=== PATIENT | female | born 1940 | race Caucasian/White ===

== ENCOUNTER 2018-04-30 11:21 | Emergency (ER) | payer OTHER ==
[2018-04-30 11:27] VITALS: BMI 33.2
[2018-04-30 11:50] LABS: BASO % 0.4 % (0-2.0); EOS % 1.6 % (0-4.5); HEMATOCRIT 37.4 % (32.4-45.2); HEMOGLOBIN 12.3 GM/dL (10.7-15.3); LYMPH % 31.3 % (8-40); MCH 28.7 pg (25.7-33.7); MEAN PLT VOLUME 9.1 fl (7.5-11.1); MONO % 8.9 % (3.8-10.2); NEUT % 57.8 % (42.8-82.8); PLATELET COUNT 284 K/MM3 (134-434); RBC 4.29 M/mm3 (3.60-5.2); RDW 12.4 % (11.6-15.6); WHITE BLOOD COUNT 8.8 K/mm3 (4.0-10.0)
[2018-04-30 12:04] LABS: INR 1.14 (0.83-1.09); PROTHROMBIN TIME (PATIENT) 12.9 SEC (9.7-13.0)
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
[2018-04-30 12:29] LABS: ALBUMIN 4.1 g/dl (3.4-5.0); ANION GAP 6 MMOL/L (8-16); BILIRUBIN,TOTAL 0.3 mg/dL (0.2-1.0); BLOOD UREA NITROGEN 38 mg/dL (7-18); CALCIUM 9.6 mg/dL (8.5-10.1); CHLORIDE 106 mmol/L (98-107); CO2 25 mmol/L (21-32); CREATININE 1.3 mg/dL (0.55-1.02); GLUCOSE,RANDOM 120 mg/dL (74-106); POTASSIUM 4.6 mmol/L (3.5-5.1); SGOT/AST 30 U/L (15-37); SGPT/ALT 30 U/L (13-61); SODIUM 137 mmol/L (136-145); TOT PROT 7.8 g/dl (6.4-8.2)
[2018-04-30 12:31] LABS: ALK PHOS 50 U/L (45-117)
[2018-04-30] MEDS ORDERED: SODIUM CHLORIDE 0.9% 1000 ML INFUS.BAG IV ONE (13:52)
[2018-04-30] MEDS ORDERED: ONDANSETRON 4 MG/2 ML VIAL IVPUSH ONE (13:52)
[2018-04-30] MEDS ORDERED: ONDANSETRON 4 MG/2 ML VIAL ONE (13:53)
[2018-04-30] MEDS ORDERED: ACETAMINOPHEN INJECTION 100 ML IVPB ONE (14:13)
[2018-04-30] MEDS ORDERED: ACETAMINOPHEN 1000 MG/100 ML VIAL (NON FORMULARY) IVPB ONE (14:13)
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
[2018-04-30 14:40] VITALS: BP 137/60; PULSE 70; TEMP 99.1
--- NOTE | 2018-04-30 15:36 | EKG ---
Test Reason : Blood Pressure : / mmHG Vent. Rate : 067 BPM Atrial Rate : 067 BPM P-R Int : 178 ms QRS Dur : 090 ms QT Int : 396 ms P-R-T Axes : 049 052 064 degrees QTc Int : 418 ms NORMAL SINUS RHYTHM NORMAL ECG WHEN COMPARED WITH ECG OF 24-FEB-2014 15:47, NONSPECIFIC T WAVE ABNORMALITY NO LONGER EVIDENT IN INFERIOR LEADS NONSPECIFIC T WAVE ABNORMALITY NO LONGER EVIDENT IN LATERAL LEADS Confirmed by THANIA SOLARES MD ([id number]) on 04/30/2018 3:36:04 PM Referred By: Confirmed By:THANIA SOLARES MD
== END 2018-04-30 15:12 | disposition home or self-care (01) ==
LOC: JER 11:21
PROC: 3E033NZ Introduction of Analgesics, Hypnotics, Sedatives into Peripheral Vein, Percutaneous Approach (ICD-10-PCS; principal; 2018-04-30)
PROC: 3E033GC Introduction of Other Therapeutic Substance into Peripheral Vein, Percutaneous Approach (ICD-10-PCS; 2018-04-30)
DX: M54.2 Cervicalgia (principal); M79.602 Pain in left arm; R42 Dizziness and giddiness; R11.0 Nausea; V49.49XA Driver injured in collision with other motor vehicles in traffic accident, initial encounter; Y92.414 Local residential or business street as the place of occurrence of the external cause; Y93.89 Activity, other specified; Y99.8 Other external cause status
CPT/HCPCS: 36415; 70450-TC; 71045-TC-FY; 72125-TC; 73030-TC-LT-FY; 73060-TC-LT-FY; 74176-TC; 80053; 85025; 85610; 86850; 86900; 86901; 93005; 93010; 99282-25; J0131; J7030

== ENCOUNTER 2020-04-28 05:14 | Day surgery (SDC) | payer OTHER ==
[2020-04-25 14:37] VITALS: BMI 37.2
[2020-04-28 12:12] VITALS: TEMP 98.4
[2020-04-28 13:33] VITALS: BP 131/88; PULSE 53
--- NOTE | 2020-05-01 19:34 | PATH ---
Surgical Pathology Report Patient Name: JEROMY HANSEN [facility]. Rec. #: [id number] /Age/Gender: 1940 (Age: 80) / F Account: [id number] Location: U-ENDOSCOPY Taken: 04/28/2020 Received: 04/28/2020 Reported: 05/01/2020 Physicians: Nicole Mcmahon M.D. Specimen(s) Received A: DUODENAL BULB SECOND PORTION DUODENUM B: GASTRIC ANTRUM C: POLYP DESCENDING COLON D: HOT SNARE POLYPECTOMY RIGHT COLON Clinical History Family history of colon cancer, adenoma surveillance, occult GI bleed Postoperative diagnosis: Gastritis, duodenitis, colon polyps, diverticulosis Final Diagnosis A. DUODENUM, SECOND PORTION AND DUODENAL BULB, BIOPSY: DUODENAL MUCOSA WITH MILD CHRONIC DUODENITIS. B. GASTRIC ANTRUM, BIOPSY: GASTRIC ANTRAL MUCOSA WITH SEVERE CHRONIC ACTIVE GASTRITIS. IMMUNOHISTOCHEMICAL STAIN FOR H. PYLORI IS POSITIVE (MANY). C. DESCENDING COLON, POLYP, BIOPSY: HYPERPLASTIC POLYP. D.COLON, RIGHT, X2, HOT SNARE POLYPECTOMY: HYPERPLASTIC POLYP. INFLAMMATORY POLYP. Positive and negative controls (internal if applicable) show appropriate results. Electronically Signed Bhavna Hayes M.D. Gross Description A. Received in formalin, labeled "biopsy duodenal bulb and second portion of duodenum" are 4 valerio, irregular portions of soft tissue averaging 0.3] cm. in greatest dimension. The specimens are submitted in toto in one cassette. B. Received in formalin, labeled "biopsy gastric antrum" are 4 valerio, irregular portions of soft tissue ranging from 0.2-0.3 cm. in greatest dimension. The specimens are submitted in toto in one cassette. C. Received in formalin, labeled "biopsy polyp descending colon" are 3 valerio, irregular portions of soft tissue ranging from 0.2-0.3 cm. in greatest dimension. The specimens are submitted in toto in one cassette. D. Received in formalin, labeled "hot snare polypectomy x2" are 2 valerio, polypoid portions of soft tissue measuring 0.3 and 0.4 cm. in greatest dimension. The specimens are submitted in toto in one cassette. 04/28/2020 saudi04/28/2020
== END 2020-04-28 13:23 | disposition home or self-care (01) ==
LOC: JASU-ENDO 05:14
PROVIDERS: ATTEND Internal Medicine Gastroenterology
PROC: 0DB98ZX Excision of Duodenum, Via Natural or Artificial Opening Endoscopic, Diagnostic (ICD-10-PCS; 2020-04-28)
PROC: 0DB68ZX Excision of Stomach, Via Natural or Artificial Opening Endoscopic, Diagnostic (ICD-10-PCS; 2020-04-28)
PROC: 0DBK8ZX Excision of Ascending Colon, Via Natural or Artificial Opening Endoscopic, Diagnostic (ICD-10-PCS; principal; 2020-04-28 11:32)
DX: Z12.11 Encounter for screening for malignant neoplasm of colon (principal); Z86.010 Personal history of colon polyps; K57.30 Diverticulosis of large intestine without perforation or abscess without bleeding; D12.2 Benign neoplasm of ascending colon; K29.70 Gastritis, unspecified, without bleeding; K29.80 Duodenitis without bleeding; E11.9 Type 2 diabetes mellitus without complications
CPT/HCPCS: 88305-TC; 88342-TC

== ENCOUNTER 2020-05-27 08:57 | Inpatient (IN) | payer OTHER ==
[2020-05-27 09:08] VITALS: BMI 31.9
--- OUTSIDE RECORDS SUMMARY | 2020-05-27 09:11 | XMS ---
:1940 Author Organization [facility] Support Name Relationship Address Phone RE, RETIRED Unavailable Unavailable [phone] RE Unavailable Unavailable [phone] DANEILLE CHOWDHURY DAUGHTER [address] [place] [address] Re-disclosure Warning The records that you are about to access may contain information from federally- assisted alcohol or drug abuse programs. If such information is present, then the following federally mandated warning applies: This information has been disclosed to you from records protected by federal confidentiality rules (42 CFR part 2). The federal rules prohibit you from making any further disclosure of this information unless further disclosure is expressly permitted by the written consent of the person to whom it pertains or as otherwise permitted by 42 CFR part 2. A general authorization for the release of medical or other information is NOT sufficient for this purpose. The Federal rules restrict any use of the information to criminally investigate or prosecute any alcohol or drug abuse patient.The records that you are about to access may contain highly sensitive health information, the redisclosure of which is protected by Article 27-F of the [facility] Public Health law. If you continue you may haveaccess to information: Regarding HIV / AIDS; Provided by facilities licensed or operated by the [facility] Office of Mental Health; or Provided by the [facility] Office for People With Developmental Disabilities. If such information is present, then the following [facility] mandated warning applies: This information has been disclosed to you from confidential records which are protected by state law. State law prohibits you from making any further disclosure of this information without the specific written consent of the person to whom it pertains, or as otherwise permitted by law. Any unauthorized further disclosure in violation of state law may result in a fine or assisted sentence or both. A general authorization for the release of medical or other information is NOT sufficient authorization for further disclosure. Insurance Providers Payer name Policy type Policy ID Covered Covered libertarian's Policy P bhavani / Coverage libertarian ID relationship to Clem[employer] Inf ormation type clemens [employer] [id number] SP [id number] MEDICARE Results ID Date Data Source [id number] 04/23/2020 09:50:00 AM EDT [facility] Name Value Range Interpretation Description Data Sup porting Code Source(s) Document(s ) SARS [facility] coronavirus 2 RNA This lab was ordered by [facility] and reported by [facility]. Procedure
--- NOTE | 2020-05-27 09:27 | PDOC ---
History of Present Illness - General Chief Complaint: Blood Pressure Problem Stated Complaint: HYPERTENSION Time Seen by Provider: 05/27/20 09:26 - History of Present Illness Initial Comments: 05/27/20 09:26 HPI: This is a 80 y/o F with a PMH of DM, HLD, and HTN presenting to the ED due to progressive difficulty walking, and a high blood pressure this morning. She takes 50mg Atenolol in the a.m., Telmisartan/HCTZ 80-25 in a.m., and hydralazine 100mg b.i.d. For the past few weeks, her blood pressure hasn't been well controlled with her medication. Most recently her doctor increased the hydralazine to 150mg b.i.d however for unknown reasons, the patient is still taking 100mg. Over the past few days she has been feeling increasingly unwell. She describes it as feeling "weak and apathetic." This morning she woke up because of a "noise in her head that she couldn't describe," a throbbing headache, and nausea. She took her blood pressure and found it in the 180's/50's. She then took her 100mg dose of hydralazine. She then started walking and said she felt unsteady and like she might fall. She called her daughter who brought her in. The headache has since resolved. She is still complaining of nausea but no vomiting. She did not have any chest pain, SOB, LOC, fever/chills, dysuria. ROS: GENERAL/CONSTITUTIONAL: No fever/chills, diaphoresis, Yes generalized weakness HEENT: Blurry vision. No ear pain. No sore throat. CARDIOVASCULAR: No chest pain, palpitations or peripheral edema RESPIRATORY: No shortness of breath, dyspnea with exertion, cough, wheezing, or hemoptysis. GASTROINTESTINAL: Yes nausea. No abdominal pain, vomiting, diarrhea or constipation. GENITOURINARY: No dysuria, frequency, or change in urination. MUSCULOSKELETAL: No joint or muscle swelling or pain. SKIN: No rash or hives NEUROLOGIC: Yes headache, No vertigo, focal weakness, loss of consciousness, or change in strength/sensation. ENDOCRINE: No increased thirst. No unexplained weight loss. HEMATOLOGIC/LYMPHATIC: No anemia, easy bleeding, or history of blood clots. PMH: DM, HLD, and HTN PSx: Denied Social Hx: Denied etoh, tobacco, drug use Meds: Hydralazine 100mg b.i.d., atenolol 50mg, Telmisartan/HCTZ 80-25mg Allergies: See nurse note PE: GENERAL: Awake, alert, and fully oriented, non-toxic in appearance. Patient is appropriately conversational. Patient is at baseline, non altered, per daughter who is at bedside. HEENT: Normocephalic, atraumatic. PERRLA, EOMI. No nystagmus. NECK: Normal ROM and supple. No lymphadenopathy, JVD, or masses. CARDIOVASCULAR: Regular rate and rhythm, normal S1 and S2, no murmurs, rubs or gallops PULMONARY: No respiratory distress. Breath sounds equal, clear to auscultation bilaterally. No wheezes, rales or rhonchi. ABDOMEN: Soft, nontender, normoactive bowel sounds. No guarding, no rebound. No masses EXTREMITIES: Normal range of motion, no edema or erythema, no calf tenderness. No clubbing or cyanosis. NEUROLOGICAL: Cranial nerves II through XII grossly intact. Normal speech. Motor strength 5/5 in upper and lower extremities. Sensation intact in bilateral upper and lower extremities. No facial droop. Gait intact but unsteady, no preference to one side. Finger to nose unsteady, slow bilaterally. NIH 2. SKIN: Warm, Dry, normal turgor, no rashes or lesions noted. Normal capillary refill. MDM: 05/27/20 10:11 This is a 80 y/o F with a PMH of DM, HLD, and HTN presenting to the ED due to progressive difficulty walking and a high blood pressure this morning. - She lives alone, but her daughter says she is normally fully independent. - Daughter says she is at baseline mentally - Not feeling well for last few days. - No focal neurological deficits on exam - Finger to nose unsteady bilaterally CVA workup EKG: No ST elevations T wave inversions Sinus Vent rate 69ms No abnormal intervals QTc 432 Spoke with radiologist who noted no acute abnormalities on CT scan Head CT: Impression: No CT evidence of acute intracranial pathology. There has been no definite interval change in comparison to a prior CT exam of 04/30/2018. 05/27/20 11:29 CBC WNL Hyponatremic 129 UA negative 05/27/20 12:01 - Spoke with Dr. Castillo who will follow patient. - Admission to stroke unit and inpatient MRI 05/27/20 12:21 - Microblog sent - Patient admitted 05/28/20 09:57 NIH Stroke Scale - Last Known Well Date/Time & Onset Date Last Known Well: 05/26/20 Time Last Known Well: 20:00 - Initial Evaluation Level of consciousness: Alert Ask patient the month and their age: Answers both correctly Ask patient to open & close eyes; make fist and let go: Obeys both correctly Best gaze (horizontal eye movement): Normal Visual field testing: No visual field loss Facial paresis (Show teeth/raise eyebrows/close eyes tight): Normal symmetrical movement Motor Function: Left Arm: Normal Motor Function: Right Arm: Normal (extends arm 90 (or 45) degrees for 10 seconds without drift Motor Function: Left Leg: Normal (extends leg 30 degrees for 5 seconds without drift) Motor Function: Right Leg: Normal (extends leg 30 degrees for 5 seconds without drift) Limb Ataxia: Present in two limbs (Abnormal finger to nose bilaterally) Sensory(Use pinprick test arms,legs,trunk,face/side to side): Normal Best language (Describe picture, name items, read sentences): No Aphasia Dysarthria (read several words): Normal articulation Extinction and Inattention: No abnormality - Total Score NIH Stroke Scale Score: 2 Past History - Medical History Allergies/Adverse Reactions: Allergies Allergy/AdvReac Type Severity Reaction Status Date / Time No Known Allergies Allergy Verified 05/27/20 09:05 Home Medications: Ambulatory Orders Aspirin 81 mg PO DAILY 02/06/13 Atenolol [Tenormin -] 50 mg PO DAILY 02/06/13 Fenofibrate Nanocrystallized [Tricor] 145 mg PO DAILY 02/06/13 Linagliptin/Metformin HCl [Jentadueto 2.5 mg-500 mg Tab] 1 each PO BID 02/24/14 Cholecalciferol (Vitamin D3) [Vitamin D3] 1,000 unit PO DAILY 04/25/20 Hydralazine HCl 100 mg PO BID 04/25/20 Multivitamin with Iron [Multivitamins with Iron] 1 tab PO DAILY 04/25/20 [place]-3S/Dha/Epa/Fish Oil [Fish Oil 1,200 mg Softgel] 1 each PO DAILY 04/25/20 Telmisartan/Hydrochlorothiazid [Telmisartan-Hctz 80-25 mg Tab] 1 each PO DAILY 04/25/20 Polyethylene Glycol 3350 [Miralax (For Daily Use) -] 17 gm PO DAILY #1 bottle 04/28/20 Anemia: No Asthma: No Cancer: No Cardiac Disorders: No CVA: No COPD: No CHF: No Dementia: No 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,SIGMOID TUBULAR ADENOMA) Disorders: No HTN: Yes Hypercholesterolemia: Yes Liver Disease: No Seizures: No Thyroid Disease: No - Surgical History Appendectomy: No Cardiac Surgery: No Cholecystectomy: No Lung Surgery: No Neurologic Surgery: No Orthopedic Surgery: No - Psycho-Social/Smoking History Smoking Status: No Smoking History: Never smoked Number of Cigarettes Smoked Daily: 0 *Physical Exam - Vital Signs Last Vital Signs Temp Pulse Resp BP Pulse Ox 97.9 F 72 18 180/57 H 97 05/27/20 09:05 05/27/20 09:05 05/27/20 09:05 05/27/20 09:05 05/27/20 09:05 ED Treatment Course - LABORATORY CBC & Chemistry Diagram: 05/28/20 05:51 05/28/20 05:51 Discharge - Discharge Information Problems reviewed: Yes Clinical Impression/Diagnosis: Dysmetria HTN (hypertension) Qualifiers: Hypertension type: unspecified Qualified Code(s): I10 - Essential (primary) hypertension Condition: Stable - Follow up/Referral - Patient Discharge Instructions - Post Discharge Activity
[2020-05-27] MEDS ORDERED: HYDROCHLOROTHIAZIDE 25 MG TABLET (FP) PO ONE (10:02)
[2020-05-27] MEDS ORDERED: ATENOLOL 50 MG TABLET (FP) PO ONE (10:02)
[2020-05-27] MEDS ORDERED: ATENOLOL 25 MG TABLET (FP) ONE ×2 (10:20→16:57)
[2020-05-27] MEDS ORDERED: HYDROCHLOROTHIAZIDE 25 MG TABLET (FP) ONE ×2 (10:21→16:58)
[2020-05-27] MEDS ORDERED: SODIUM CHLORIDE 1,000 ML IV SCH (10:30)
[2020-05-27 10:59] LABS: BASO % 0.5 % (0-2.0); EOS % 0.4 % (0-4.5); HEMATOCRIT 33.1 % (32.4-45.2); HEMOGLOBIN 11.5 GM/dL (10.7-15.3); LYMPH % 28.7 % (8-40); MCH 29.6 pg (25.7-33.7); MCHC 34.7 g/dl (32.0-36.0); MEAN CELL VOLUME 85.3 fl (80-96); MEAN PLT VOLUME 9.2 fl (7.5-11.1); MONO % 9.1 % (3.8-10.2); NEUT % 61.3 % (42.8-82.8); PLATELET COUNT 311 K/MM3 (134-434); RBC 3.88 M/mm3 (3.60-5.2); RDW 12.6 % (11.6-15.6); WHITE BLOOD COUNT 7.2 K/mm3 (4.0-10.0)
--- NOTE | 2020-05-27 10:59 | PDOC ---
Documentation entered by Bridget Blackwell SCRIBE, acting as scribe for Skye Ty MD. Skye Ty MD: This documentation has been prepared by the chris, Bridget Juárez SCRIBE, under my direction and personally reviewed by me in its entirety. I confirm that the documentation accurately reflects all work, treatment, procedures, and medical decision making performed by me. Attending Attestation - Resident Resident Name: ShericeAlice - ED Attending Attestation I have performed the following: I have examined & evaluated the patient, The case was reviewed & discussed with the resident, I agree w/resident's findings & plan, Exceptions are as noted - HPI HPI: 05/27/20 09:37 The patient is a 80 year old female with a significant PMH of HLD, HTN and NIDDM who presents to the emergency department for evaluation of hypertension that occurred this morning. Patient notes that she usually takes Atenol and Telmisartan/HCTZ in the morning and hydralazine b.i.d. She reports that recently her doctor raised her hydralazine from 100mg b.i.d to 150mg b.i.d, due to her blood pressure still being uncontrolled with her medication. The patient reports still taking 100mg of hydralazine. She reports that when she took her BP this morning it was 180s/50s so she took her 100mg of hydralazine and reports no change in BP, so she proceeded to the ED. She also endorses a throbbing headache this morning, that has now subsided, an unsteady gait and some nausea. The patient denies chest pain, shortness of breath. Denies fever, chills, vomiting, diarrhea and constipation. Denies dysuria, frequency, urgency and hematuria. Allergies: NKA Past surgical history: None reported Social history: No reported hx of tobacco use, alcohol use or illicit drug use. PCP: Robbie Shahid - Physicial Exam PE: GENERAL: Awake, alert, and fully oriented, in no acute distress HEAD: No signs of trauma EYES: PERRLA, EOMI, sclera anicteric, conjunctiva clear ENT: Auricles normal inspection, hearing grossly normal, nares patent, oropharynx clear without exudates. Moist mucosa NECK: Normal ROM, supple, no lymphadenopathy, JVD, or masses LUNGS: Breath sounds equal, clear to auscultation bilaterally. No wheezes, and no crackles HEART: Regular rate and rhythm, normal S1 and S2, no murmurs, rubs or gallops ABDOMEN: Soft, nontender, normoactive bowel sounds. No guarding, no rebound. No masses EXTREMITIES: Normal range of motion, no edema. No clubbing or cyanosis. No cords, erythema, or tenderness NEUROLOGICAL: Cranial nerves II through XII grossly intact. Motor and sensation intact. Slight delay with speech when answering questions (confirmed by family member at bedside). +Dysmetria ([id number]) on R SKIN: Warm, dry, normal turgor, no rashes or lesions noted. - Medical Decision Making 05/27/20 10:59 Pt woke up with symptoms, unable to confirm exact time of onset. Will do a stroke workup to further evaluate. Anticipate admission. Patient is not a tPA candidate based on unknown onset of symptoms. NIH Stroke Scale - Last Known Well Date/Time & Onset Date Last Known Well: 05/26/20 - Initial Evaluation Level of consciousness: Alert Ask patient the month and their age: Answers both correctly Ask patient to open & close eyes; make fist and let go: Obeys both correctly Best gaze (horizontal eye movement): Normal Visual field testing: No visual field loss Facial paresis (Show teeth/raise eyebrows/close eyes tight): Normal symmetrical movement Motor Function: Left Arm: Normal Motor Function: Right Arm: Normal (extends arm 90 (or 45) degrees for 10 seconds without drift Motor Function: Left Leg: Normal (extends leg 30 degrees for 5 seconds without drift) Motor Function: Right Leg: Normal (extends leg 30 degrees for 5 seconds without drift) Limb Ataxia: Present in one limb Sensory(Use pinprick test arms,legs,trunk,face/side to side): Normal Best language (Describe picture, name items, read sentences): No Aphasia Dysarthria (read several words): Mild to moderate slurring of words Extinction and Inattention: No abnormality - Total Score NIH Stroke Scale Score: 2 Discharge - Discharge Information Problems reviewed: Yes Clinical Impression/Diagnosis: Dysmetria HTN (hypertension) Qualifiers: Hypertension type: unspecified Qualified Code(s): I10 - Essential (primary) hypertension Condition: Stable - Follow up/Referral - Patient Discharge Instructions - Post Discharge Activity
[2020-05-27 11:00] LABS: EPI CELLS 7 /uL (0-25.1); HYALINE CASTS 0 /uL (0-3.1); PH,URINE 6.5 (5.0-8.0); URINE APPEARANCE CLEAR; URINE BACTERIA 18 /uL (0-1359); URINE BILIRUBIN NEGATIVE (NEGATIVE); URINE COLOR YELLOW; URINE GLUCOSE (UA) TRACE (NEGATIVE); URINE KETONE NEGATIVE (NEGATIVE); URINE LEUK ESTERASE 1+ (NEGATIVE); URINE NITRITE NEGATIVE (NEGATIVE); URINE PROTEIN NEGATIVE (NEGATIVE); URINE RBC 2 /uL (0-23.9); URINE UROBILINOGEN 0.2 mg/dL (0.2-1.0); URINE WBC 14 /uL (0-25.8)
[2020-05-27 11:05] LABS: INR 1.16 (0.83-1.09); PROTHROMBIN TIME (PATIENT) 13.7 SEC (9.7-13.0)
[2020-05-27 11:08] LABS: ACTIVATED PTT 35.3 SECONDS (25.2-36.5)
[2020-05-27] MEDS ORDERED: MECLIZINE HCL 12.5 MG TABLET PO ONE (11:11)
[2020-05-27] MEDS ORDERED: MECLIZINE HCL 12.5 MG TABLET ONE (11:23)
[2020-05-27 11:40] LABS: ALBUMIN 3.9 g/dl (3.4-5.0); ALK PHOS 49 U/L (45-117); ANION GAP 8 MMOL/L (8-16); BILIRUBIN,TOTAL 0.3 mg/dL (0.2-1); BLOOD UREA NITROGEN 36.6 mg/dL (7-18); CALCIUM 9.5 mg/dL (8.5-10.1); CHLORIDE 95 mmol/L (98-107); CHOLESTEROL 161 mg/dL (50-200); CO2 26 mmol/L (21-32); CREATININE 1.3 mg/dL (0.55-1.3); GLUCOSE,RANDOM 122 mg/dL (74-106); HDL CHOLESTEROL 58 mg/dL (40-60); LDL CHOLESTEROL (ONLY SJRH) 94 mg/dL (5-100); POTASSIUM 4.6 mmol/L (3.5-5.1); SGOT/AST 29 U/L (15-37); SGPT/ALT 25 U/L (13-61); SODIUM 129 mmol/L (136-145); TOT PROT 7.6 g/dl (6.4-8.2); TRIGLYCERIDES 134 mg/dL (0-150)
[2020-05-27] MEDS ORDERED: METOCLOPRAMIDE HCL INJECTION 10 MG/2 ML VIAL IVPUSH ONE (12:24)
[2020-05-27] MEDS ORDERED: SODIUM CHLORIDE 0.9% 500 ML INFUS.BAG IV ONE (12:24)
--- OUTSIDE RECORDS SUMMARY | 2020-05-27 13:12 | XMS ---
:1940 Author Organization [facility] Support Name Relationship Address Phone RE, RETIRED Unavailable Unavailable [phone] RE Unavailable Unavailable [phone] DANIELLE CHOWDHURY DAUGHTER [address] [place] [address] Re-disclosure Warning The records that you are [...] is protected by Article 27-F of the [facility] Public Health law. If you continue you may haveaccess to information: Regarding HIV / AIDS; Provided by facilities licensed or operated by the [facility] Office of Mental Health; or Provided by the [facility] Office for People With Developmental Disabilities. If such information is present, then the following [facility] mandated warning applies: This information has been [...] law may result in a fine or shelter sentence or both. A general authorization for the release of medical or other information is NOT sufficient authorization for further disclosure. Insurance Providers Payer name Policy type Policy ID Covered Covered green party's Policy P bhavani / Coverage green party ID relationship to [employer] ormation type clemens [employer] [id number] SP [id number] MEDICARE Results ID Date Data Source [id number] 04/23/2020 09:50:00 AM EDT [facility] Name Value Range Interpretation Description Data Sup porting Code Source(s) Document(s ) SARS [facility] coronavirus 2 RNA This lab was ordered by [facility] and reported by [facility]. Procedure
[2020-05-27] MEDS ORDERED: METOCLOPRAMIDE HCL INJECTION 10 MG/2 ML VIAL ONE (13:51)
[2020-05-27] MEDS ORDERED: ONDANSETRON 4 MG/2 ML VIAL IVPB PRN (14:43)
--- NOTE | 2020-05-27 14:48 | HP ---
CHIEF COMPLAINT: PCP: HISTORY OF PRESENT ILLNESS: 80 y/o F w/ PMH of DM, HLD, and HTN who came into the ED c/o high blood pressure, odd sensation in the head and progressive difficulty ambulating. Pt endorses difficulty with controlling her BP over the last few weeks. Most recently, her hydralazine has been increased from 50 to 100mg BID. Her readings at home have been "up and down" per the patient. she cannot remember the numbers. she also endorses progressive difficulty walking over the past few weeks. This morning, she woke up and felt an "buzzing noise in her head" accompanied by a generalized weakness and a feeling that "something was off". Her BP was in the 180's / 50's at that time. She also felt particularly unsteady at that time. Patient denies fever, chills, abdominal pain In the ED, patient was hypertensive to [address]'s systolic. NIHSS 0. CT head negative for bleed or infarct. Neuology consuled form ED, will evaluate. MRI brain negative for infarct. Recent Travel: none PAST MEDICAL HISTORY: see hpi PAST SURGICAL HISTORY: see hpi Social History: Smoking: denies Alcohol: denies Drugs: denies Allergies No Known Allergies Allergy (Verified 05/27/20 09:05) HOME MEDICATIONS: Home Medications Medication Instructions Recorded Aspirin 81 mg PO DAILY 02/06/13 Atenolol [Tenormin -] 50 mg PO DAILY 02/06/13 Fenofibrate Nanocrystallized 145 mg PO DAILY 02/06/13 [Tricor] Linagliptin/Metformin HCl 1 each PO BID 02/24/14 [Jentadueto 2.5 mg-500 mg Tab] Cholecalciferol (Vitamin D3) 1,000 unit PO DAILY 04/25/20 [Vitamin D3] Hydralazine HCl 100 mg PO BID 04/25/20 Metformin HCl [Glucophage] 500 mg PO DAILY 04/25/20 Multivitamin with Iron 1 tab PO DAILY 04/25/20 [Multivitamins with Iron] [place]-3S/Dha/Epa/Fish Oil [Fish 1 each PO DAILY 04/25/20 Oil 1,200 mg Softgel] Telmisartan/Hydrochlorothiazid 1 each PO DAILY 04/25/20 [Telmisartan-Hctz 80-25 mg Tab] Polyethylene Glycol 3350 [Miralax 17 gm PO DAILY #1 bottle 04/28/20 (For Daily Use) -] REVIEW OF SYSTEMS negative except for as noted in HPI PHYSICAL EXAMINATION Vital Signs - 24 hr 05/27/20 05/27/20 05/27/20 09:05 09:30 10:00 Temperature 97.9 F Pulse Rate 72 Pulse Rate [ 70 67 Apical] Respiratory 18 18 18 Rate Blood Pressure 180/57 H Blood Pressure 169/57 L 152/50 L [Left Arm] O2 Sat by Pulse 97 99 99 Oximetry (%) 05/27/20 05/27/20 05/27/20 10:30 11:30 12:00 Temperature Pulse Rate Pulse Rate [ 67 62 65 Apical] Respiratory 18 18 18 Rate Blood Pressure Blood Pressure 160/58 L 138/46 L 148/48 L [Left Arm] O2 Sat by Pulse 99 96 96 Oximetry (%) 05/27/20 05/27/20 05/27/20 12:30 13:00 13:30 Temperature Pulse Rate Pulse Rate [ 65 63 70 Apical] Respiratory 18 18 18 Rate Blood Pressure Blood Pressure 143/47 L 145/47 L 167/59 L [Left Arm] O2 Sat by Pulse 95 98 98 Oximetry (%) 05/27/20 14:30 Temperature Pulse Rate Pulse Rate [ 69 Apical] Respiratory 18 Rate Blood Pressure Blood Pressure 148/50 L [Left Arm] O2 Sat by Pulse 97 Oximetry (%) GENERAL: Awake, alert, and fully oriented, in no acute distress. HEAD: Normal with no signs of trauma. EYES: Pupils equal, round and reactive to light, extraocular movements intact, sclera anicteric, conjunctiva clear. No lid lag. EARS, NOSE, THROAT: Ears normal, nares patent, oropharynx clear without exudates. Moist mucous membranes. NECK: Normal range of motion, supple without lymphadenopathy, JVD, or masses. LUNGS: Breath sounds equal, clear to auscultation bilaterally. No wheezes, and no crackles. No accessory muscle use. HEART: Regular rate and rhythm, normal S1 and S2 without murmur, rub or gallop. ABDOMEN: Soft, nontender, not distended, normoactive bowel sounds, no guarding, no rebound, no masses. No hepatomegaly or splenomegaly. MUSCULOSKELETAL: Normal range of motion at all joints. No bony deformities or tenderness. No CVA tenderness. UPPER EXTREMITIES: 2+ pulses, warm, well-perfused. No cyanosis. No clubbing. No peripheral edema. LOWER EXTREMITIES: 2+ pulses, warm, well-perfused. No calf tenderness. No peripheral edema. NEUROLOGICAL: Cranial nerves II-XII intact. Normal speech. Normal gait. PSYCHIATRIC: Cooperative. Good eye contact. Appropriate mood and affect. SKIN: Warm, dry, normal turgor, no rashes or lesions noted, normal capillary refill. Laboratory Results - last 24 hr 05/27/20 05/27/20 05/27/20 10:34 10:40 10:40 WBC RBC Hgb Hct MCV MCH MCHC RDW Plt Count MPV Absolute Neuts (auto) Neutrophils % Lymphocytes % Monocytes % Eosinophils % Basophils % Nucleated RBC % PT with INR 13.70 H INR 1.16 H PTT (Actin FS) 35.3 Sodium Potassium Chloride Carbon Dioxide Anion Gap BUN Creatinine Est GFR (CKD-EPI)AfAm Est GFR (CKD-EPI)NonAf Random Glucose Lactic Acid Calcium Total Bilirubin AST ALT Alkaline Phosphatase Creatine Kinase Creatine Kinase Index CK-MB (CK-2) Troponin I Total Protein Albumin Triglycerides Cancelled Cholesterol Cancelled Total LDL Cholesterol Cancelled HDL Cholesterol Cancelled Urine Color Yellow Urine Appearance Clear Urine pH 6.5 D Ur Specific [place] 1.009 L Urine Protein Negative Urine Glucose (UA) Trace Urine Ketones Negative Urine Blood Negative Urine Nitrite Negative Urine Bilirubin Negative Urine Urobilinogen 0.2 Ur Leukocyte Esterase 1+ H Urine WBC (Auto) 14 Urine RBC (Auto) 2 Urine Casts (Auto) 0 U Epithel Cells (Auto) 7 Urine Bacteria (Auto) 18 Blood Type Antibody Screen 05/27/20 05/27/20 05/27/20 10:40 10:40 10:40 WBC 7.2 RBC 3.88 Hgb 11.5 Hct 33.1 MCV 85.3 MCH 29.6 MCHC 34.7 RDW 12.6 Plt Count 311 MPV 9.2 Absolute Neuts (auto) 4.4 Neutrophils % 61.3 Lymphocytes % 28.7 Monocytes % 9.1 Eosinophils % 0.4 Basophils % 0.5 Nucleated RBC % 0 PT with INR INR PTT (Actin FS) Sodium 129 L Potassium 4.6 Chloride 95 L Carbon Dioxide 26 Anion Gap 8 BUN 36.6 H Creatinine 1.3 Est GFR (CKD-EPI)AfAm 45.50 Est GFR (CKD-EPI)NonAf 39.26 Random Glucose 122 H Lactic Acid Calcium 9.5 Total Bilirubin 0.3 AST 29 ALT 25 Alkaline Phosphatase 49 Creatine Kinase 150 Creatine Kinase Index 1.2 CK-MB (CK-2) 1.8 Troponin I < 0.02 Total Protein 7.6 Albumin 3.9 Triglycerides 134 Cholesterol 161 Total LDL Cholesterol 94 HDL Cholesterol 58 Urine Color Urine Appearance Urine pH Ur Specific [place] Urine Protein Urine Glucose (UA) Urine Ketones Urine Blood Urine Nitrite Urine Bilirubin Urine Urobilinogen Ur Leukocyte Esterase Urine WBC (Auto) Urine RBC (Auto) Urine Casts (Auto) U Epithel Cells (Auto) Urine Bacteria (Auto) Blood Type A POSITIVE Antibody Screen Negative 05/27/20 10:40 WBC RBC Hgb Hct MCV MCH MCHC RDW Plt Count MPV Absolute Neuts (auto) Neutrophils % Lymphocytes % Monocytes % Eosinophils % Basophils % Nucleated RBC % PT with INR INR PTT (Actin FS) Sodium Potassium Chloride Carbon Dioxide Anion Gap BUN Creatinine Est GFR (CKD-EPI)AfAm Est GFR (CKD-EPI)NonAf Random Glucose Lactic Acid 1.6 Calcium Total Bilirubin AST ALT Alkaline Phosphatase Creatine Kinase Creatine Kinase Index CK-MB (CK-2) Troponin I Total Protein Albumin Triglycerides Cholesterol Total LDL Cholesterol HDL Cholesterol Urine Color Urine Appearance Urine pH Ur Specific [place] Urine Protein Urine Glucose (UA) Urine Ketones Urine Blood Urine Nitrite Urine Bilirubin Urine Urobilinogen Ur Leukocyte Esterase Urine WBC (Auto) Urine RBC (Auto) Urine Casts (Auto) U Epithel Cells (Auto) Urine Bacteria (Auto) Blood Type Antibody Screen ASSESSMENT/PLAN: 80 y/o F w/ PMH of DM, HLD, and HTN who came into the ED c/o high blood pressure, odd sensation in the head and progressive difficulty ambulating. #unsteadiness and difficulty ambulating -likley neurodegenerative in nature as per neruology. -MRI brain ruled out Infarct -pt will need neuro follow up upon discharge #HTN -will restart home BP meds and monitor BP -titrate BP meds accordingly -it is possible BP spike could be responsible for the patient's ssx in part. Family Medical History Family History: Denies Visit type - Medication Review Med list reviewed for High Risk Meds patients 65 and older: Yes - Emergency Visit Emergency Visit: Yes ED Registration Date: 05/27/20 Care time: The patient presented to the Emergency Department on the above date and was hospitalized for further evaluation of their emergent condition. - New Patient This patient is new to me today: Yes Date on this admission: 05/28/20 - Critical Care Critical Care patient: No
[2020-05-27] MEDS ORDERED: PATIENT'S OWN MEDICATION (NON-FORMULARY) (Telmisartan/Hydrochlorothiazid [Telmisartan-Hctz PO SCH (15:00)
[2020-05-27] MEDS ORDERED: LOSARTAN POTASSIUM 50 MG TABLET PO SCH (15:15)
--- NOTE | 2020-05-27 15:53 | EKG ---
Test Reason : Blood Pressure : / mmHG Vent. Rate : 069 BPM Atrial Rate : 069 BPM P-R Int : 194 ms QRS Dur : 092 ms QT Int : 404 ms P-R-T Axes : 089 017 055 degrees QTc Int : 432 ms NORMAL SINUS RHYTHM OTHERWISE NORMAL ECG WHEN COMPARED WITH ECG OF 30-APR-2018 13:49, NO SIGNIFICANT CHANGE WAS FOUND Confirmed by JAMES ASHBY MD ([id number]) on 05/27/2020 3:53:19 PM Referred By: Confirmed By:JAMES ASHBY MD
[2020-05-27] MEDS ORDERED: ASPIRIN COATED 81 MG TABLET.EC ONE (16:57)
[2020-05-27] MEDS ORDERED: HEPARIN NA (PORCINE) 5,000 UNITS/ML 1ML VIAL ONE (16:58)
[2020-05-27] MEDS: HYDROCHLOROTHIAZIDE 25 MG TABLET (FP) PO SCH (17:30)
[2020-05-27] MEDS: ATENOLOL 50 MG TABLET (FP) PO SCH (17:30)
[2020-05-27] MEDS: VALSARTAN 160 MG TABLET PO SCH (18:19)
[2020-05-27] MEDS: HEPARIN NA (PORCINE) 5,000 UNITS/ML 1ML VIAL SQ SCH ×2 (18:19→22:35)
--- NOTE | 2020-05-27 18:34 | CONSULT ---
Consult - text type - Consultation Consultation Note: NEUROLOGY CONSULTATION is greatly appreciated: Events reviewed,. Patient examined with her daughter at the bedside. This 80 yo RH woman lives alone. Followed by Mark Shahid and Salome. PMH of HTN, Cholesterol and diabetes. Recently s/p colonoscopy revealing benign polyps. Maintained on: Aspirin 81; Atenolol 50; Tricor; Jentadueto 2.5 mg-500; Hydralazine 100 BID; Metformin; and Telmisartan/Hctz 80-25 mg. Pt walks around her block every day but, over the last few months finds she is slower. easily fatigued and more wobbly. In recent weeks family relates increasing difficulty regulating BP's with SBP's > 180. Last night she describes sudden deterioration of gait. When she notified her daughter this AM they came to the ED. CT of head (reviewed): Normal study MRI of brain (reviewed but not yet reported. Mild atrophy and microvascular changes. MADDISON BP's in 140-150/60-70 range. No bruits. Cor reg. NEURO: Awake, alert, anxious. MS/Speech: Normal CN II-XII: normal without Nystagmus Motor: No drift or tremor. Normal strength, throughout. + Cogwheel rigidity. Decreased NANCY's symmetrically. Normal reflexes except absent AJ's. Toes downgoing Coord: No FTN dystaxia Sensory: Reduced vibration in the feet. Gait: Shuffling, without circumduction or asymmetry. IMP: Non-focal exam sig for early extrapyramidal signs (Parkinsonism) and Diabetic peripheral neuropathy. SUGGEST: Stabilize BP Await MRI reading Check B12, TSH, CK, Covid status PT for gait training. Should continue as out patient Neuro f/u as out patient for assessment of neuropathy and possible Rx of EPS. Thank you very much, Jeancarlos Castillo MD
[2020-05-27] MEDS: ASPIRIN 81 MG CHEWABLE TABLETS PO SCH (18:47)
[2020-05-27] MEDS: INSULIN SLIDING SCALE (NOVOLOG) 1 VIAL SQ SCH ×2 (18:48→22:37)
[2020-05-27] MEDS: hydrALAZINE HCL 50 MG TABLET (FP) PO SCH ×2 (22:35→23:01)
[2020-05-27] MEDS ORDERED: PT OWN MED DRAWER 7, Y5N ONE (23:07)
[2020-05-28] MEDS: INSULIN SLIDING SCALE (NOVOLOG) 1 VIAL SQ SCH ×4 (06:12→21:30)
[2020-05-28] MEDS: HEPARIN NA (PORCINE) 5,000 UNITS/ML 1ML VIAL SQ SCH ×3 (06:12→21:32)
[2020-05-28 06:20] LABS: BASO % 0.3 % (0-2.0); EOS % 1.2 % (0-4.5); HEMATOCRIT 31.5 % (32.4-45.2); HEMOGLOBIN 10.7 GM/dL (10.7-15.3); LYMPH % 32.5 % (8-40); MCH 28.4 pg (25.7-33.7); MCHC 33.9 g/dl (32.0-36.0); MEAN CELL VOLUME 83.9 fl (80-96); MEAN PLT VOLUME 9.2 fl (7.5-11.1); PLATELET COUNT 288 K/MM3 (134-434); RBC 3.75 M/mm3 (3.60-5.2); RDW 12.6 % (11.6-15.6); WHITE BLOOD COUNT 6.9 K/mm3 (4.0-10.0)
[2020-05-28 06:53] LABS: ALBUMIN 3.4 g/dl (3.4-5.0); BILIRUBIN,TOTAL 0.3 mg/dL (0.2-1); BLOOD UREA NITROGEN 27.3 mg/dL (7-18); CALCIUM 8.9 mg/dL (8.5-10.1); CREATININE 1.2 mg/dL (0.55-1.3); MAGNESIUM 2.2 mg/dL (1.8-2.4); PHOSPHOROUS 3.4 mg/dL (2.5-4.9); TOT PROT 6.6 g/dl (6.4-8.2)
[2020-05-28] MEDS ORDERED: PT OWN MED DRAWER 7, Y5N ONE ×3 (08:56→17:25)
[2020-05-28] MEDS: ASPIRIN 81 MG CHEWABLE TABLETS PO SCH (09:12)
[2020-05-28] MEDS: HYDROCHLOROTHIAZIDE 25 MG TABLET (FP) PO SCH (09:12)
[2020-05-28] MEDS: hydrALAZINE HCL 50 MG TABLET (FP) PO SCH ×2 (09:12→21:27)
[2020-05-28] MEDS: VALSARTAN 160 MG TABLET PO SCH (09:12)
[2020-05-28] MEDS: ATENOLOL 50 MG TABLET (FP) PO SCH (09:13)
[2020-05-28] MEDS: POLYETHYLENE GLYCOL 3350 119 GM BTL PO SCH (09:18)
[2020-05-28] MEDS: FENOFIBRIC ACID 135 MG CAP PO SCH (11:49)
[2020-05-29] MEDS: INSULIN SLIDING SCALE (NOVOLOG) 1 VIAL SQ SCH ×4 (06:25→21:30)
[2020-05-29] MEDS: HEPARIN NA (PORCINE) 5,000 UNITS/ML 1ML VIAL SQ SCH ×3 (06:25→21:26)
[2020-05-29] MEDS ORDERED: PT OWN MED DRAWER 7, Y5N ONE (08:55)
[2020-05-29] MEDS: ASPIRIN 81 MG CHEWABLE TABLETS PO SCH (09:02)
[2020-05-29] MEDS: POLYETHYLENE GLYCOL 3350 119 GM BTL PO SCH (09:03)
[2020-05-29] MEDS: VALSARTAN 160 MG TABLET PO SCH (09:03)
[2020-05-29] MEDS: HYDROCHLOROTHIAZIDE 25 MG TABLET (FP) PO SCH (09:03)
[2020-05-29] MEDS: ATENOLOL 50 MG TABLET (FP) PO SCH (09:03)
[2020-05-29] MEDS: hydrALAZINE HCL 50 MG TABLET (FP) PO SCH ×2 (09:03→21:27)
[2020-05-29] MEDS: FENOFIBRIC ACID 135 MG CAP PO SCH (09:04)
--- NOTE | 2020-05-29 14:12 | PN ---
Teaching Attending Note Name of Resident: Robbie Reilly ATTENDING PHYSICIAN STATEMENT I saw and evaluated the patient. I reviewed the resident's note and discussed the case with the resident. I agree with the resident's findings and plan as documented. SUBJECTIVE: Seen and examined at bedside. Patient reports symptoms has resolved and she is walking her baseline. Had plan to discharge the patient, however carotid Doppler results came back showing 50 to 70% proximal left internal carotid artery stenosis. CTA head and neck ordered. If no need for urgent intervention on the basis of results of CTA patient may be discharged with outpatient follow- up. OBJECTIVE Last Vital Signs Temp Pulse Resp BP Pulse Ox 98.2 F 74 19 141/65 98 05/29/20 09:10 05/29/20 09:10 05/29/20 09:10 05/29/20 09:10 05/29/20 09:11 PE: Per resident note Labs/Imaging: reviewed ASSESSMENT/PLAN 80-year-old female with a past medical history of DM, HLD, HTN presented to the ED complaining of high blood pressure and on sensation in the head and progressive difficulty ambulating. Blood pressure treated with resolution of symptoms and unremarkable MRI. #Unsteadiness and difficulty ambulating Neurology on board: Appreciate recommendations Ultrasound suggestive of carotid artery stenosis, will follow-up with CTA head and neck ASA, statin #Diabetes mellitus Hold home oral medications ISS #Hypertension Continue medications
--- NOTE | 2020-05-29 17:29 | PN ---
Physical Exam: SUBJECTIVE: Patient seen and examined at bedside this AM. Denies any weakness or difficulty ambulating. OBJECTIVE: Vital Signs Period Temp Pulse Resp BP Sys/Dixon Pulse Ox Last 24 Hr 97.8 F-98.5 F 62-79 17-20 120-147/44-65 95-98 GENERAL: The patient is awake, alert, and fully oriented, in no acute distress. HEAD: Normal with no signs of trauma. EYES: EOMI Sclera clear NECK: Trachea midline, full range of motion, supple. LUNGS: CTAB2 ABDOMEN: Soft, NDNT EXTREMITIES: No CCE NEUROLOGICAL: Cranial nerves II through XII grossly intact. Normal speech, gait observed. Walks straight with no abnormalities PSYCH: Normal mood, normal affect. SKIN: Warm, dry, normal turgor, no rashes or lesions noted Laboratory Results - last 24 hr 05/29/20 17:02 POC Glucometer 128 Active Medications Generic Name Dose Route Start Last Admin Trade Name Freq PRN Reason Stop Dose Admin Aspirin 81 mg 05/27/20 14:45 05/29/20 09:02 Asa - PO 81 mg DAILY ERENDIRA Administration Atenolol 50 mg 05/27/20 14:45 05/29/20 09:03 Tenormin - PO 50 mg DAILY ERENDIRA Administration Fenofibric Acid 135 mg 05/28/20 10:00 05/29/20 09:04 Trilipix - PO 135 mg DAILY ERENDIRA Administration Heparin Sodium (Porcine) 5,000 unit 05/27/20 15:30 05/29/20 13:19 Heparin - SQ 5,000 unit TID ERENDIRA Administration Hydralazine HCl 100 mg 05/27/20 22:00 05/29/20 09:03 Apresoline - PO 100 mg BID ERENDIRA Administration Hydrochlorothiazide 25 mg 05/27/20 15:15 05/29/20 09:03 Hctz - PO 25 mg DAILY ERENDIRA Administration Insulin Aspart 1 vial 05/27/20 16:30 05/29/20 17:05 Novolog Vial Sliding Scale - SQ Not Given ACHS ON LICENSE OF [facility] Protocol Ondansetron HCl 4 mg 05/27/20 14:43 Zofran Injection IVPB Q8H PRN NAUSEA Polyethylene Glycol 17 gm 05/28/20 10:00 05/29/20 09:03 Miralax (For Daily Use) - PO 17 gm DAILY ERENDIRA Administration Valsartan 320 mg 05/27/20 15:15 05/29/20 09:03 Diovan - PO 320 mg DAILY ERENDIRA Administration ASSESSMENT/PLAN: 80 y/o F w/ PMH of DM, HLD, and HTN who came into the ED c/o high blood pressure, odd sensation in the head and progressive difficulty ambulating. #unsteadiness and difficulty ambulating likely 2/2 uncontrolled Hypertension -BP upon admission 180s systolic -Imaging negative for any acute intracranial patholoy - Carotid U/S---> 50-70% stenosis left ICA. Neck/Brain CTA pending read. Already on statin, will likely increase dosage if no indication for CEA on read. Patient also on ASA. -Neuro on board. Recs appreciated. #HTN -Telmisartan-HCTZ switched to Valsartan 360 and HCTZ as Telmisartan-HCTZ non- formulary. Also Valsartan 360 is stronger than Telmisartan 80 per pharmacy. #FEN No Fluids monitor Electrolytes Sodium Controlled #DVT ppx: HepSQTID #Dispo: Likely D/C pending read of Neck/Brain CTA Visit type - Emergency Visit Emergency Visit: Yes ED Registration Date: 05/27/20 Care time: The patient presented to the Emergency Department on the above date and was hospitalized for further evaluation of their emergent condition. - New Patient This patient is new to me today: No - Critical Care Critical Care patient: No - Discharge Referral Referred to [facility] No - Medication Review Med list reviewed for High Risk Meds patients 65 and older: Yes ATTENDING PHYSICIAN STATEMENT I saw and evaluated the patient. I reviewed the resident's note and discussed the case with the resident. I agree with the resident's findings and plan as documented. SUBJECTIVE: OBJECTIVE: ASSESSMENT AND PLAN:
--- NOTE | 2020-05-29 21:15 | PN ---
Progress Note (short form) - Note Progress Note: NEUROLOGY PROGRESS: Events reviewed. Patient examined. Pt. notes walking is steadier today and she is upset because she did not go home. MRI of brain (reviewed): Normal Carotid duplex doppler: Moderate (50-70) left ICA stenosis CT Angio of neck and brain done: awaiting reading. MADDISON: No bruits No drift. Mild cogwheeling with reinforcement Slightly reduced Lilly Absent AJ's. Reduced vibration in feet. Romberg - Slight shuffling IMP: Non-focal exam Mild extrapyramidal signs Diabetic Peripheral neuropathy Mild-Mod left ICA plaque/stenosis SUGGEST: OK to D/C Will check CTA as out patient Neuro f/u as out patient Thank you very much, Jeancarlos Castillo MD
[2020-05-30] MEDS: HEPARIN NA (PORCINE) 5,000 UNITS/ML 1ML VIAL SQ SCH ×2 (06:34→13:23)
[2020-05-30] MEDS: INSULIN SLIDING SCALE (NOVOLOG) 1 VIAL SQ SCH ×2 (06:34→10:55)
[2020-05-30 07:09] LABS: HEMATOCRIT 30.5 % (32.4-45.2); HEMOGLOBIN 10.3 GM/dL (10.7-15.3); MCH 28.7 pg (25.7-33.7); MCHC 33.7 g/dl (32.0-36.0); MEAN PLT VOLUME 9.8 fl (7.5-11.1); PLATELET COUNT 274 K/MM3 (134-434); RBC 3.59 M/mm3 (3.60-5.2); RDW 12.4 % (11.6-15.6); WHITE BLOOD COUNT 8.7 K/mm3 (4.0-10.0)
[2020-05-30 07:28] LABS: CALCIUM 8.7 mg/dL (8.5-10.1); CREATININE 1.5 mg/dL (0.55-1.3); MAGNESIUM 2.2 mg/dL (1.8-2.4); POTASSIUM 4.6 mmol/L (3.5-5.1)
[2020-05-30] MEDS ORDERED: SODIUM CHLORIDE 500 ML IV STA ×2 (07:36→10:40)
[2020-05-30] MEDS ORDERED: PT OWN MED DRAWER 7, Y5N ONE ×2 (08:23→08:54)
[2020-05-30] MEDS: POLYETHYLENE GLYCOL 3350 119 GM BTL PO SCH (09:03)
[2020-05-30] MEDS: HYDROCHLOROTHIAZIDE 25 MG TABLET (FP) PO SCH (09:03)
[2020-05-30] MEDS: ATENOLOL 50 MG TABLET (FP) PO SCH (09:04)
[2020-05-30] MEDS: VALSARTAN 160 MG TABLET PO SCH (09:04)
[2020-05-30] MEDS: FENOFIBRIC ACID 135 MG CAP PO SCH (09:04)
[2020-05-30] MEDS: hydrALAZINE HCL 50 MG TABLET (FP) PO SCH (09:04)
[2020-05-30] MEDS: ASPIRIN 81 MG CHEWABLE TABLETS PO SCH (09:04)
--- NOTE | 2020-05-30 12:38 | PN ---
Teaching Attending Note Name of Resident: Robbie Reilly ATTENDING PHYSICIAN STATEMENT I saw and evaluated the patient. I reviewed the resident's note and discussed the case with the resident. I agree with the resident's findings and plan as documented. SUBJECTIVE: Seen and examined at bedside. Feeling well. CTA head and neck showed bilateral 50% carotid stenosis without occlusion. Creatinine noted to be 1.5 this morning up from 1.2 yesterday. Patient given fluids, will recheck creatinine and if not continuing to trend up will discharge this afternoon OBJECTIVE Last Vital Signs Temp Pulse Resp BP Pulse Ox 99 F 73 18 138/69 95 05/30/20 09:53 05/30/20 09:53 05/30/20 09:53 05/30/20 09:53 05/30/20 09:53 PE: Per resident note Labs/Imaging: reviewed ASSESSMENT/PLAN 80-year-old female with a past medical history of DM, HLD, HTN presented to the ED complaining of high blood pressure and on sensation in the head and progressive difficulty ambulating. Blood pressure treated with resolution of symptoms and unremarkable MRI. 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
[2020-05-30 13:43] VITALS: BP 133/67; PULSE 74; TEMP 98.6
[2020-05-30 14:29] LABS: BLOOD UREA NITROGEN 33.6 mg/dL (7-18); CALCIUM 8.7 mg/dL (8.5-10.1); CREATININE 1.5 mg/dL (0.55-1.3); POTASSIUM 4.9 mmol/L (3.5-5.1)
[2020-05-30] MEDS ORDERED: SODIUM CHLORIDE 1,000 ML IV SCH (15:30)
--- NOTE | 2020-05-30 15:36 | DS ---
Physical Exam: SUBJECTIVE: Patient seen and examined OBJECTIVE: Vital Signs Period Temp Pulse Resp BP Sys/Dixon Pulse Ox Last 24 Hr 98.2 F-99.4 F 71-82 16-20 110-140/44-90 95-98 PHYSICAL EXAM GENERAL: The patient is awake, alert, and fully oriented, in no acute distress. HEAD: Normal with no signs of trauma. EYES: PERRL, extraocular movements intact, sclera anicteric, conjunctiva clear. ENT: Ears normal, nares patent, oropharynx clear without exudates, moist mucous membranes. NECK: Trachea midline, full range of motion, supple. LUNGS: Breath sounds equal, clear to auscultation bilaterally, no wheezes, no crackles, no accessory muscle use. HEART: Regular rate and rhythm, S1, S2 without murmur, rub or gallop. ABDOMEN: Soft, nontender, nondistended, normoactive bowel sounds, no guarding, no rebound, no hepatosplenomegaly, no masses. EXTREMITIES: 2+ pulses, warm, well-perfused, no edema. NEUROLOGICAL: Cranial nerves II through XII grossly intact. Normal speech, gait not observed. PSYCH: Normal mood, normal affect. SKIN: Warm, dry, normal turgor, no rashes or lesions noted. LABS Laboratory Results - last 24 hr 05/29/20 05/30/20 05/30/20 17:02 05:50 05:50 WBC 8.7 RBC 3.59 L Hgb 10.3 L Hct 30.5 L MCV 85.0 MCH 28.7 MCHC 33.7 RDW 12.4 Plt Count 274 MPV 9.8 Sodium 135 L Potassium 4.6 Chloride 104 Carbon Dioxide 25 Anion Gap 6 L BUN 34.0 H Creatinine 1.5 H Est GFR (CKD-EPI)AfAm 38.28 Est GFR (CKD-EPI)NonAf 33.02 POC Glucometer 128 Random Glucose 122 H Calcium 8.7 Phosphorus 4.0 Magnesium 2.2 05/30/20 05/30/20 05/30/20 06:33 10:52 13:21 WBC RBC Hgb Hct MCV MCH MCHC RDW Plt Count MPV Sodium 134 L Potassium 4.9 Chloride 102 Carbon Dioxide 25 Anion Gap 7 L BUN 33.6 H Creatinine 1.5 H Est GFR (CKD-EPI)AfAm 38.28 Est GFR (CKD-EPI)NonAf 33.02 POC Glucometer 128 187 Random Glucose 203 H Calcium 8.7 Phosphorus Magnesium HOSPITAL COURSE: Date of Admission:05/27/20 Date of Discharge: 05/30/20 Discharge Summary Problems reviewed: Yes Reason For Visit: DYSMETRIA/HYPERTENSION Current Active Problems Dysmetria (Acute) HTN (hypertension) (Acute) Condition: Stable - Instructions Diet, Activity, Other Instructions: You were seen here because of your problem walking. This was all because of high blood pressure that you were experiencing at the time. As your blood pressure became normal your symptoms improved. It is important to take your blood pressure medications every day on time. MEDICATIONS: Please take your home medications as below: Atenolol 50mg daily Hydralazine 100mg TWICE daily We have made changes to your blood pressure medication regimen. Please take Valsartan 360 daily, Hydrochlorothiazide 25 daily, Aspirin 81 mg Daily, and Atorvastatin 80 mg (at night) Please resume the Valsartan on , June 01. You kidneys became elevated likely secondary to you receiving the contrast for the Cat Scan. Please follow up this week with Dr Shahid to have your blood redrawn (CMP, CBC) Please STOP taking your Metformin and Jentadueto until you see your primary care doctor within 1 week and have your blood work repeated. These medications can further damage your kidneys. Please STOP Telmasarten-HCtZ. 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 Please follow up with Dr Becerra regarding this finding. Please be sure to drink at least 8 glasses of water daily. This will help with your kidney function. You were found to have a 1.7 cm nodule on your thyroid. please follow up with your PMD for this. Please return to the emergency department immediately if you begin to experience dizziness, blurry vision, chest pain, shortness of breath, weakness in your arms, legs, ore face, or any other abnormal symptoms. Referrals: Jeancarlos Castillo MD [Staff Physician] - Robbie Shahid MD [Primary Care Provider] - 1 Week Disposition: HOME - Home Medications Comprehensive Discharge Medication List: Ambulatory Orders Aspirin 81 mg PO DAILY 02/06/13 Atenolol [Tenormin -] 50 mg PO DAILY 02/06/13 Fenofibrate Nanocrystallized [Tricor] 145 mg PO DAILY 02/06/13 Linagliptin/Metformin HCl [Jentadueto 2.5 mg-500 mg Tab] 1 each PO BID 02/24/14 Cholecalciferol (Vitamin D3) [Vitamin D3] 1,000 unit PO DAILY 04/25/20 Multivitamin with Iron [Multivitamins with Iron] 1 tab PO DAILY 04/25/20 [place]-3S/Dha/Epa/Fish Oil [Fish Oil 1,200 mg Softgel] 1 each PO DAILY 04/25/20 Polyethylene Glycol 3350 [Miralax 119 gm Btl -] 17 gm PO DAILY #1 bottle 04/28/20 Metformin HCl [Glucophage] 1 tab PO BID 05/29/20 Atorvastatin Ca [Lipitor] 80 mg PO HS #30 tab 05/30/20 Hydralazine HCl 1 tab PO BID 05/30/20 Hydrochlorothiazide 25 mg PO DAILY #30 tablet 05/30/20 Valsartan 320 mg PO DAILY #30 tablet 05/30/20 - Discharge Referral Referred to [facility] No ATTENDING PHYSICIAN STATEMENT I saw and evaluated the patient. I reviewed the resident's note and discussed the case with the resident. I agree with the resident's findings and plan as documented. SUBJECTIVE: OBJECTIVE: ASSESSMENT AND PLAN:
== END 2020-05-30 18:21 | disposition home or self-care (01) | DRG 92 ==
LOC: JER 08:57 → JERBED 12:58 → J4S 19:49
PROVIDERS: ADMIT Internal Medicine; ATTEND Internal Medicine
DX: R26.9 Unspecified abnormalities of gait and mobility (principal); N17.9 Acute kidney failure, unspecified; E78.5 Hyperlipidemia, unspecified; I10 Essential (primary) hypertension; G20 Parkinson's disease; R27.8 Other lack of coordination; E11.42 Type 2 diabetes mellitus with diabetic polyneuropathy; I65.22 Occlusion and stenosis of left carotid artery; R91.1 Solitary pulmonary nodule
CPT/HCPCS: 36415; 70450-TC; 70496-TC; 70498-TC; 70551-TC; 80048; 80053; 80061; 81003; 82550; 82553; 82607; 82962; 83036; 83605; 83721; 83735; 84100; 84443; 84484; 85025; 85027; 85610; 85730; 86850; 86900; 86901; 93005; 93010; 93880-TC; 97116-GP; 97161-GP; 99285-25; C9803; J1644; Q9967; U0003

== ENCOUNTER 2023-02-01 12:04 | Emergency (ER) | payer OTHER ==
[2023-02-01 12:22] VITALS: BP 126/50; PULSE 74; RESP 16; TEMP 97.7; BMI 32.5
[2023-02-01] MEDS ORDERED: NAPROXEN 500 MG TABLET PO ONE (15:07)
[2023-02-01] MEDS ORDERED: NAPROXEN 500 MG TABLET ONE (15:15)
== END 2023-02-01 16:40 | disposition home or self-care (01) ==
LOC: JER 12:04 → JERFT 12:04
DX: M54.16 Radiculopathy, lumbar region (principal); M25.551 Pain in right hip; M25.561 Pain in right knee; M54.9 Dorsalgia, unspecified; G89.29 Other chronic pain
CPT/HCPCS: 72170-TC-FY; 73502-TC-RT-FY; 93971-TC; 99284-25

== ENCOUNTER 2023-04-08 06:07 | Day surgery (SDC) | payer OTHER ==
[2023-03-25 12:28] VITALS: BMI 33.5
[2023-04-08] MEDS ORDERED: CELECOXIB 200 MG CAPSULE PO ONE (06:27)
[2023-04-08] MEDS ORDERED: GABAPENTIN 300 MG CAPSULE PO ONE (06:27)
[2023-04-08] MEDS ORDERED: ceFAZolin SODIUM 1 GM VIAL ONE ×2 (07:05→08:27)
[2023-04-08] MEDS ORDERED: VANCOMYCIN 1,000 MG VIAL (RESTRICTED TO ID ONLY) ONE (07:05)
[2023-04-08] MEDS ORDERED: DEXAMETHASONE SOD PHOSPHATE/PF 10 MG/ML SDV ONE (07:48)
[2023-04-08] MEDS ORDERED: ROPIVACAINE HCL 0.5% 30ML VIAL ONE (07:48)
[2023-04-08] MEDS ORDERED: MIDAZOLAM HCL 2 MG/2 ML SINGLE DOSE VIAL ONE ×3 (07:48→08:56)
[2023-04-08] MEDS ORDERED: ONDANSETRON 4 MG/2 ML VIAL IVPUSH PRN (07:52)
[2023-04-08] MEDS ORDERED: MAG HYDROX/AL HYDROX/SIMETH 30 ML UNIT-DOSE CUP PO PRN (07:52)
[2023-04-08] MEDS ORDERED: TRANEXAMIC ACID 1000 MG/10 ML VIAL ONE (08:27)
[2023-04-08] MEDS ORDERED: ONDANSETRON 4 MG/2 ML VIAL ONE (08:27)
[2023-04-08] MEDS ORDERED: VANCOMYCIN 1,000 MG VIAL (RESTRICTED TO ID ONLY) IVPB ONE (09:21)
[2023-04-08] MEDS ORDERED: CEFAZOLIN 2 GM in DEXTROSE 5%-WATER - 50 ML IVPB ONE (09:30)
[2023-04-08] MEDS ORDERED: TRANEXAMIC ACID 1000 MG/10 ML VIAL IVPUSH ONE (09:30)
[2023-04-08] MEDS ORDERED: LOVASTATIN 20 MG PO SCH (10:00)
[2023-04-08] MEDS ORDERED: FENOFIBRATE NANOCRYSTALLIZED 145 MG PO SCH (10:00)
[2023-04-08] MEDS ORDERED: PATIENT'S OWN MEDICATION (NON-FORMULARY) (Linagliptin [Tradjenta] 5 MG Tablet) PO SCH (10:00)
[2023-04-08] MEDS: LACTATED RINGERS SOLUTION 1,000 ML IV SCH ×3 (10:30→17:08)
[2023-04-08] MEDS: HYDROCHLOROTHIAZIDE 25 MG TABLET (FP) PO SCH (14:09)
[2023-04-08] MEDS: MULTIVITAMINS (DAILY MVI) TABLET (FP) PO SCH (14:10)
[2023-04-08] MEDS: PANTOPRAZOLE 40 MG TABLET PO SCH (14:10)
[2023-04-08] MEDS: SENNOSIDES/DOCUSATE COMBO (SENNA PLUS) TABLET (UD) PO SCH ×2 (14:10→21:01)
[2023-04-08] MEDS: FENOFIBRIC ACID 135 MG CAP PO SCH (14:10)
[2023-04-08] MEDS: oxyCODONE HCL 5 MG TABLET PO PRN (17:07)
[2023-04-08] MEDS: CEFAZOLIN SODIUM 2 GM in DEXTROSE 5%-WATER 100 ML IVPB SCH ×2 (17:07→23:31)
[2023-04-08] MEDS: hydrALAZINE HCL 50 MG TABLET (FP) PO SCH (21:01)
[2023-04-08] MEDS: ATENOLOL 50 MG TABLET (FP) PO SCH (21:02)
[2023-04-08] MEDS: glipiZIDE-XL 2.5 MG TAB.ER.24 PO SCH (21:05)
[2023-04-09] MEDS: sitaGLIPtin PHOSPHATE 50 MG TABLET PO SCH ×2 (05:57→07:23)
[2023-04-09] MEDS: oxyCODONE HCL 5 MG TABLET PO PRN ×4 (05:57→18:25)
[2023-04-09] MEDS: ASPIRIN 325 MG TABLET PO SCH (07:48)
[2023-04-09] MEDS ORDERED: ACETAMINOPHEN 1000 MG/100 ML BAG IVPB ONE (08:28)
[2023-04-09 08:45] LABS: HEMATOCRIT 30.6 % (32.4-45.2); HEMOGLOBIN 10.2 G/dL (10.7-15.3); MCH 29.1 pg (25.7-33.7); MCHC 33.2 g/dl (32.0-36.0); MEAN CELL VOLUME 87.8 fl (80-96); PLATELET COUNT 322.6 10^3/uL (134-434); RBC 3.49 10^6/uL (3.60-5.2); RDW 13.5 % (11.6-15.6); WHITE BLOOD COUNT 11.9 10^3/uL (4.0-10.8)
[2023-04-09] MEDS: SENNOSIDES/DOCUSATE COMBO (SENNA PLUS) TABLET (UD) PO SCH ×2 (10:01→21:38)
[2023-04-09] MEDS: PANTOPRAZOLE 40 MG TABLET PO SCH (10:01)
[2023-04-09] MEDS: MULTIVITAMINS (DAILY MVI) TABLET (FP) PO SCH (10:01)
[2023-04-09] MEDS: FENOFIBRIC ACID 135 MG CAP PO SCH (10:02)
[2023-04-09] MEDS: ATENOLOL 50 MG TABLET (FP) PO SCH ×2 (11:16→21:37)
[2023-04-09] MEDS: VALSARTAN 160 MG TABLET PO SCH (11:16)
[2023-04-09] MEDS: hydrALAZINE HCL 50 MG TABLET (FP) PO SCH ×2 (11:16→21:37)
[2023-04-09] MEDS: oxyCODONE HCL 10 MG SUSTAINED ACTING TABLET PO SCH ×2 (11:16→21:38)
[2023-04-09] MEDS: HYDROCHLOROTHIAZIDE 25 MG TABLET (FP) PO SCH (11:16)
[2023-04-09] MEDS: ACETAMINOPHEN 500 MG TABLET (FP) PO SCH ×2 (16:30→21:38)
[2023-04-09] MEDS: glipiZIDE-XL 2.5 MG TAB.ER.24 PO SCH (21:37)
[2023-04-10 01:20] VITALS: RESP 18
[2023-04-10] MEDS: ACETAMINOPHEN 500 MG TABLET (FP) PO SCH ×2 (03:00→09:17)
[2023-04-10] MEDS: oxyCODONE HCL 5 MG TABLET PO PRN ×3 (05:52→13:03)
[2023-04-10] MEDS: sitaGLIPtin PHOSPHATE 50 MG TABLET PO SCH (06:25)
[2023-04-10] MEDS: LACTATED RINGERS SOLUTION 1,000 ML IV SCH (06:28)
[2023-04-10] MEDS: ASPIRIN 325 MG TABLET PO SCH (07:54)
[2023-04-10 08:14] LABS: HEMATOCRIT 30.4 % (32.4-45.2); HEMOGLOBIN 9.9 G/dL (10.7-15.3); MCH 28.8 pg (25.7-33.7); MCHC 32.6 g/dl (32.0-36.0); MEAN CELL VOLUME 88.3 fl (80-96); MEAN PLT VOLUME 8.6 fl (7.5-11.1); RBC 3.44 10^6/uL (3.60-5.2); RDW 13.3 % (11.6-15.6)
[2023-04-10] MEDS: SENNOSIDES/DOCUSATE COMBO (SENNA PLUS) TABLET (UD) PO SCH (09:17)
[2023-04-10] MEDS: oxyCODONE HCL 10 MG SUSTAINED ACTING TABLET PO SCH (09:18)
[2023-04-10] MEDS: FENOFIBRIC ACID 135 MG CAP PO SCH (09:18)
[2023-04-10] MEDS: PANTOPRAZOLE 40 MG TABLET PO SCH (09:18)
[2023-04-10 09:22] VITALS: BP 114/52; PULSE 56; TEMP 98.6
[2023-04-10] MEDS: MULTIVITAMINS (DAILY MVI) TABLET (FP) PO SCH (09:23)
[2023-04-10] MEDS: VALSARTAN 160 MG TABLET PO SCH (12:39)
[2023-04-10] MEDS: HYDROCHLOROTHIAZIDE 25 MG TABLET (FP) PO SCH (12:39)
[2023-04-10] MEDS: hydrALAZINE HCL 50 MG TABLET (FP) PO SCH (12:39)
[2023-04-10] MEDS: ATENOLOL 50 MG TABLET (FP) PO SCH (12:39)
== END 2023-04-10 13:32 | disposition home health service (06) ==
LOC: FASUSAT 06:07 → FM/S 11:10 → FASUSAT 04-10 13:32
PROVIDERS: ATTEND Orthopaedic Surgery
PROC: 8E0Y0CZ Robotic Assisted Procedure of Lower Extremity, Open Approach (ICD-10-PCS; 2023-04-08)
PROC: 0SR90JA Replacement of Right Hip Joint with Synthetic Substitute, Uncemented, Open Approach (ICD-10-PCS; principal; 2023-04-08 08:35)
DX: M16.11 Unilateral primary osteoarthritis, right hip (principal)
CPT/HCPCS: 20985; 27130; C1776; S2900; 36415; 73502-TC-RT-FY; 82962; 85027; 88305-TC; 88311-TC; 94760; 97010-GP; 97116-GP; 97162-GP; C1713

== ENCOUNTER 2023-07-05 13:07 | Emergency (ER) | payer OTHER ==
[2023-07-05 13:28] VITALS: RESP 18; TEMP 98.3; BMI 33.9
[2023-07-05] MEDS ORDERED: SODIUM CHLORIDE 0.9% 500 ML INFUS.BAG IV ONE (13:44)
[2023-07-05] MEDS ORDERED: IBUPROFEN 400 MG TABLET (FP) PO ONE ×2 (13:45→13:51)
[2023-07-05 14:18] VITALS: BP 147/89; PULSE 88
[2023-07-05 14:21] LABS: BASO % 0.4 % (0-2.0); EOS % 0.2 % (0-4.5); HEMATOCRIT 32.2 % (32.4-45.2); HEMOGLOBIN 10.7 GM/dL (10.7-15.3); LYMPH % 13.4 % (8-40); MCH 28.6 pg (25.7-33.7); MCHC 33.2 g/dl (32.0-36.0); MEAN CELL VOLUME 86.2 fl (80-96); MEAN PLT VOLUME 9.9 fl (7.5-11.1); MONO % 18.5 % (3.8-10.2); NEUT % 67.5 % (42.8-82.8); PLATELET COUNT 208 10^3/uL (134-434); RBC 3.74 M/mm3 (3.60-5.2); RDW 14.1 % (11.6-15.6); WHITE BLOOD COUNT 7.6 K/mm3 (4.0-10.0)
[2023-07-05 14:39] LABS: POTASSIUM 4.4 mmol/L (3.5-5.1)
[2023-07-05 14:40] LABS: ALBUMIN 3.4 g/dl (3.4-5.0); BLOOD UREA NITROGEN 33.5 mg/dL (7-18); CALCIUM 8.9 mg/dL (8.5-10.1)
[2023-07-05 14:44] LABS: CREATININE 1.8 mg/dL (0.55-1.3)
[2023-07-05 14:46] LABS: BILIRUBIN,TOTAL 0.4 mg/dL (0.2-1); TOT PROT 6.8 g/dl (6.4-8.2)
== END 2023-07-05 17:12 | disposition home or self-care (01) ==
LOC: JER 13:07
DX: U07.1 COVID-19 (principal); R53.1 Weakness; R07.0 Pain in throat; R05.9 Cough, unspecified; R50.9 Fever, unspecified; R11.0 Nausea
CPT/HCPCS: 0241U-QW; 36415; 71045-TC-FY; 80053; 85025; 93005; 93010; 99285-25

== ENCOUNTER 2024-02-13 10:49 | Observation (INO) | payer OTHER ==
[2024-02-13] MEDS ORDERED: ACETAMINOPHEN INJECTION 100 ML IVPB ONE (11:35)
[2024-02-13] MEDS: ACETAMINOPHEN 1000 MG/100 ML BAG IVPB ONE (12:11)
[2024-02-13] MEDS: SODIUM CHLORIDE 0.9% 1000 ML INFUS.BAG IV ONE (12:11)
[2024-02-13 12:20] LABS: BASO % 0.4 % (0-2.0); HEMATOCRIT 34.1 % (32.4-45.2); HEMOGLOBIN 11.6 GM/dL (10.7-15.3); MCH 29.4 pg (25.7-33.7); MEAN CELL VOLUME 86.5 fl (80-96); MONO % 9.1 % (3.8-10.2); NEUT % 66.5 % (42.8-82.8); PLATELET COUNT 272 10^3/uL (134-434); RBC 3.94 M/mm3 (3.60-5.2)
[2024-02-13 12:23] LABS: WHITE BLOOD COUNT 9.5 K/mm3 (4.0-10.0)
[2024-02-13 12:42] LABS: POTASSIUM 5.6 mmol/L (3.5-5.1)
[2024-02-13 12:44] LABS: ALBUMIN 3.7 g/dl (3.4-5.0); CALCIUM 9.4 mg/dL (8.5-10.1)
[2024-02-13 12:45] LABS: BLOOD UREA NITROGEN 54.1 mg/dL (7-18)
[2024-02-13 12:48] LABS: CREATININE 2.1 mg/dL (0.55-1.3)
[2024-02-13 12:49] LABS: BILIRUBIN,TOTAL 0.5 mg/dL (0.2-1); TOT PROT 7.6 g/dl (6.4-8.2)
[2024-02-13 13:48] LABS: EPI CELLS 11 /uL (0-25.1); HYALINE CASTS 0 /uL (0-3.1); PH,URINE 5.5 (5.0-8.0); URINE APPEARANCE CLEAR; URINE BACTERIA 42 /uL (0-1359); URINE BILIRUBIN NEGATIVE (NEGATIVE); URINE COLOR YELLOW; URINE GLUCOSE (UA) NEGATIVE (NEGATIVE); URINE KETONE NEGATIVE (NEGATIVE); URINE LEUK ESTERASE 2+ (NEGATIVE); URINE NITRITE NEGATIVE (NEGATIVE); URINE PROTEIN NEGATIVE (NEGATIVE); URINE RBC 7 /uL (0-23.9); URINE UROBILINOGEN 0.2 mg/dL (0.2-1.0); URINE WBC 133 /uL (0-25.8)
[2024-02-13] MEDS ORDERED: ONDANSETRON *ODT* 4 MG TABLET ONE (14:11)
[2024-02-13] MEDS ORDERED: CEFTRIAXONE 1 GM/50 ML BAG ONE (14:46)
[2024-02-13] MEDS: CEFTRIAXONE 1,000 MG in DEXTROSE 5%-WATER - 50 ML IVPB ONE (14:53)
[2024-02-13 20:46] VITALS: BMI 33.7
[2024-02-13] MEDS ORDERED: ACETAMINOPHEN 1000 MG/100 ML BAG IVPB PRN (23:27)
[2024-02-13] MEDS ORDERED: ONDANSETRON 4 MG/2 ML VIAL IVPUSH PRN (23:27)
[2024-02-13] MEDS ORDERED: POLYETHYLENE GLYCOL (HEALTHYLAX) 3350 17 GM PACKET PO SCH (23:30)
[2024-02-14 09:13] LABS: BASO % 0.2 % (0-2.0); EOS % 2.3 % (0-4.5); HEMATOCRIT 32.8 % (32.4-45.2); HEMOGLOBIN 10.9 GM/dL (10.7-15.3); LYMPH % 27.4 % (8-40); MCH 28.9 pg (25.7-33.7); MCHC 33.2 g/dl (32.0-36.0); NEUT % 61.1 % (42.8-82.8); PLATELET COUNT 229 10^3/uL (134-434); RBC 3.77 M/mm3 (3.60-5.2); RDW 12.6 % (11.6-15.6); WHITE BLOOD COUNT 7.7 K/mm3 (4.0-10.0)
[2024-02-14 09:37] LABS: POTASSIUM 4.6 mmol/L (3.5-5.1)
[2024-02-14 09:40] LABS: CALCIUM 9.1 mg/dL (8.5-10.1)
[2024-02-14 09:41] LABS: ALBUMIN 3.6 g/dl (3.4-5.0); BLOOD UREA NITROGEN 43.6 mg/dL (7-18)
[2024-02-14 09:44] LABS: CREATININE 1.8 mg/dL (0.55-1.3)
[2024-02-14 09:45] LABS: BILIRUBIN,TOTAL 0.4 mg/dL (0.2-1); TOT PROT 6.9 g/dl (6.4-8.2)
[2024-02-14] MEDS ORDERED: PATIENT'S OWN MEDICATION (NON-FORMULARY) (Atenolol [Tenormin -] 100 MG Tablet) PO SCH (10:00)
[2024-02-14] MEDS: CEFTRIAXONE 1 GM in DEXTROSE 5%-WATER - 50 ML IVPB SCH (10:35)
[2024-02-14] MEDS: hydrALAZINE HCL 50 MG TABLET (FP) PO SCH (10:36)
[2024-02-14] MEDS: HEPARIN NA (PORCINE) 5,000 UNITS/ML 1ML VIAL SQ SCH (10:36)
[2024-02-14] MEDS: VALSARTAN 160 MG TABLET PO SCH (10:36)
[2024-02-14] MEDS: MULTIVITAMINS THER W-MINERALS COMBO TABLET (FP) PO SCH (10:36)
[2024-02-14] MEDS: PANTOPRAZOLE 40 MG TABLET PO SCH (10:36)
[2024-02-14] MEDS: ASPIRIN 325 MG TABLET PO SCH (10:36)
[2024-02-14] MEDS: FENOFIBRIC ACID 135 MG CAP PO SCH (11:46)
[2024-02-14] MEDS: glipiZIDE-XL 2.5 MG TAB.ER.24 PO SCH (11:46)
[2024-02-14] MEDS ORDERED: ACETAMINOPHEN 325 MG TABLET (FP) PO PRN (18:52)
[2024-02-15 03:30] VITALS: RESP 18
[2024-02-15 09:23] VITALS: BP 132/53; PULSE 72; TEMP 97.9
== END 2024-02-15 16:45 | disposition home or self-care (01) ==
LOC: JER 10:49 → JERBED 15:09 → J7W 19:52 → INTOOBSV 23:23 → OBSVTOIN 23:23
PROVIDERS: ADMIT Internal Medicine; ATTEND Internal Medicine
PROC: 3E03329 Introduction of Other Anti-infective into Peripheral Vein, Percutaneous Approach (ICD-10-PCS; principal; 2024-02-13)
PROC: 3E033NZ Introduction of Analgesics, Hypnotics, Sedatives into Peripheral Vein, Percutaneous Approach (ICD-10-PCS; 2024-02-13)
PROC: 3E023GC Introduction of Other Therapeutic Substance into Muscle, Percutaneous Approach (ICD-10-PCS; 2024-02-13)
PROC: 3E0337Z Introduction of Electrolytic and Water Balance Substance into Peripheral Vein, Percutaneous Approach (ICD-10-PCS; 2024-02-13)
DX: N39.0 Urinary tract infection, site not specified (principal); R94.4 Abnormal results of kidney function studies; E11.9 Type 2 diabetes mellitus without complications; I10 Essential (primary) hypertension; E78.5 Hyperlipidemia, unspecified; N20.0 Calculus of kidney; Z86.16 Personal history of COVID-19; E86.0 Dehydration; N28.89 Other specified disorders of kidney and ureter; K52.9 Noninfective gastroenteritis and colitis, unspecified; E66.9 Obesity, unspecified
CPT/HCPCS: 36415; 74176-TC; 80053; 81003; 82962; 83690; 85025; 87086; 96365; 96366; 96372; 96375; 99285-25; G0378; J0131; J1644